=== PATIENT | male | born 1940 | race Caucasian/White ===

== ENCOUNTER → 2018-04-20 | Outpatient (CLI) | payer MEDICARE, OTHER | LOC: GMAE 13:00 | PROVIDERS: ATTEND Family Medicine | DX: I10 Essential (primary) hypertension (principal) ==

== ENCOUNTER → 2019-03-22 | Outpatient (CLI) | payer MEDICARE, OTHER ==
[~2019-03-22] MED LIST: ALBUTEROL SULFATE 2.5 MG/3 ML VIAL NEB ONE
== END ==
LOC: RESP 08:41
PROVIDERS: ATTEND Family Medicine
DX: R06.02 Shortness of breath (principal)
CPT/HCPCS: 94060; J7611

== ENCOUNTER → 2019-05-04 | Outpatient (CLI) | payer MEDICARE, OTHER | LOC: GMAE 12:11 | PROVIDERS: ATTEND Family Medicine | DX: L29.9 Pruritus, unspecified (principal) ==

== ENCOUNTER → 2019-05-07 | Outpatient (CLI) | payer MEDICARE, OTHER ==
--- NOTE | 2019-05-08 10:34 | US ---
EXAM DESCRIPTION: Liver: ULTRASOUND. CLINICAL HISTORY: ABNORMAL RESULTS OF LIVER FUNCTION STUDIES COMPARISON: None. TECHNIQUE: Transabdominal scannin-dimensional and Doppler modes. FINDINGS: Gallbladder: Surgically removed. No fluid in the gallbladder fossa. Non-tender with transducer pressure. Common bile duct: caliber 10.6 mm slightly dilated. Liver: Increased heterogeneous echogenicity; contour liver capsule smooth where seen. No fluid around the liver. Intrahepatic biliary ducts normal caliber. Doppler hepatopedal flow portal vein. 10 mm. Long axis right lobe 14.3 cm. Pancreas: normal size and echogenicity. Duct not seen. Right kidney: long axis measures 9.6 cm. Normal cortical echogenicity. Mid renal cortical thickness 12 mm. No echogenic stones or hydronephrosis. Aorta proximal: 1.8 cm normal caliber. IMPRESSION: 1. Gallbladder surgically absent. No fluid in the gallbladder fossa. Nontender. Common bile duct 10.6 mm which is slightly dilated, even in a postcholecystectomy patient. 2. Heterogeneously fatty steatosis liver. Normal size and physiologic vascularity. Normal caliber of the ducts. Smooth capsule with no ascites. Pancreas appears physiologic 3. Physiologic appearance of the right kidney. No hydronephrosis. Normal caliber of the proximal abdominal aorta. Electronically signed by: Ross Gipson MD 05/08/2019 10:32 AM CDT
== END ==
LOC: US 14:30
PROVIDERS: ATTEND Family Medicine
DX: R94.5 Abnormal results of liver function studies (principal); K76.0 Fatty (change of) liver, not elsewhere classified; Z90.49 Acquired absence of other specified parts of digestive tract

== ENCOUNTER → 2019-05-08 | Outpatient (CLI) | payer MEDICARE, OTHER | LOC: GMAE 16:57 | PROVIDERS: ATTEND Family Medicine | DX: K71.0 Toxic liver disease with cholestasis (principal); R74.8 Abnormal levels of other serum enzymes ==

== ENCOUNTER → 2019-08-08 | Outpatient (CLI) | payer MEDICARE, OTHER | LOC: GMAE 11:26 | PROVIDERS: ATTEND Family Medicine | DX: Z12.5 Encounter for screening for malignant neoplasm of prostate (principal); I10 Essential (primary) hypertension; E78.5 Hyperlipidemia, unspecified | CPT/HCPCS: 84443; G0103 ==

== ENCOUNTER 2020-03-03 05:28 | Day surgery (SDC) | payer MEDICARE, OTHER ==
[2020-03-03] MEDS ORDERED: MOXIFLOXACIN HCL (OPHTH) 1 DROP DROPS ONE (08:40)
[2020-03-03] MEDS ORDERED: PROPARACAINE 0.5% OPHTH SOL 15 ML BTTL ONE (08:40)
[2020-03-03] MEDS ORDERED: TROP1%/CYCLOPEN 1%/PHENYL 2.5% DROPS ONE (08:40)
[2020-03-03] MEDS ORDERED: MOXIFLOXACIN HCL (OPHTH) 1 DROP DROPS LEFT_EYE ONE ×2 (10:08→10:28)
[2020-03-03] MEDS ORDERED: PROPARACAINE 0.5% OPHTH SOL 15 ML BTTL LEFT_EYE ONE ×2 (10:08→10:28)
[2020-03-03] MEDS ORDERED: LIDOCAINE 1% 2 ML VIAL INJ ONE ×2 (10:08→10:28)
[2020-03-03] MEDS ORDERED: DEXAMETHASONE 0.1% OPHTH SOL 1 DROP LEFT_EYE ONE ×2 (10:09→10:28)
[2020-03-03] MEDS ORDERED: TOBRAMYCIN SULF 0.3 % OPHT SOL 1 DROP LEFT_EYE ONE ×2 (10:09→10:28)
[2020-03-03] MEDS ORDERED: BRIMONIDINE 0.2% OPHTH DROPS LEFT_EYE ONE ×2 (10:10→10:28)
[2020-03-03] MEDS ORDERED: MIDAZOLAM INJ 2 MG/2 ML VIAL ONE (10:28)
== END 2020-03-03 11:40 | disposition home or self-care (01) ==
LOC: AMB 05:28
PROVIDERS: ATTEND Ophthalmology
DX: H25.13 Age-related nuclear cataract, bilateral (principal); H40.1122 Primary open-angle glaucoma, left eye, moderate stage; I10 Essential (primary) hypertension; Z88.0 Allergy status to penicillin
CPT/HCPCS: 00140; 66174; 66982; 85810; J2250